=== PATIENT | male | born 1990 | race Caucasian/White ===

== ENCOUNTER 2017-01-16 19:14 | Emergency (ER) | payer BC ==
[2017-01-16 23:21] LABS: HEMOGLOBIN 15.2 gm/dl (14.0-17.5); RED BLOOD COUNT 4.74 M/UL (4.20-5.50); WHITE BLOOD COUNT 14.6 K/UL (4.5-11.0)
[2017-01-16 23:45] LABS: BUN/CREATININE RATIO 13 (0-10)
== END 2017-01-17 01:23 | disposition home or self-care (01) ==
LOC: ER1 19:14
PROVIDERS: Physician Assistant
DX: J20.9 Acute bronchitis, unspecified (principal); K21.9 Gastro-esophageal reflux disease without esophagitis; F17.210 Nicotine dependence, cigarettes, uncomplicated; Z79.899 Other long term (current) drug therapy
CPT/HCPCS: 36415; 71020; 80053; 82550; 82553; 83874; 83880; 84484; 85025; 85379; 93005; 94640; 94664; 99285